=== PATIENT | female | born 1960 | race Two or more races ===

== ENCOUNTER → 2024-04-20 | Emergency (ER) | payer SELFPAY ==
[~2024-04-20] VITALS: Ht 154.9 cm; Wt 68.0 kg
[2024-04-20 19:36] VITALS: BP 156/86; RESP 24; O2SAT 92
[2024-04-20 19:40] VITALS: PULSE 106
--- NOTE | 2024-04-20 19:57 | ED.PDOC ---
Psychiatric HPI Comments 57y F who presents to the ED for chief complaint of anxiety. Pt was crying in the [facility] main lobby as family member recently and pt was grieving and pt suddenly has shortness of breath with associated dizziness and felt she was going to have a syncopal episode. Pt fell to the floor and code assist was called and pt was evaluated. Pt int the ED, now denies any associated chest pain, shortness of breath, headache, dizziness, or any associated symptoms. Pt otherwise denies any other symptoms at this time and declined any workups and wants to go home. Chief Complaint: Anxiety Time Seen by MD: 19:56 Mode of Arrival: Ambulatory Past Medical History PAST MEDICAL HISTORY: Denies Constitutional: reports: malaise, weakness; denies: chills, diaphoresis, fatigue, fever, sweats, others EENTM: denies: blurred vision, double vision, ear bleeding, ear discharge, ear drainage, ear pain, ear ringing, eye pain, eye redness, hearing loss, mouth pain, mouth swelling, nasal discharge, nose bleeding, nose congestion, nose pain, photophobia, tearing, throat pain, throat swelling, voice changes, others Respiratory: denies: cough, hemoptysis, orthopnea, SOB at rest, shortness of breath, SOB with excertion, stridor, wheezing, others Cardiovascular: denies: chest pain, dizzy spells, diaphoresis, Dyspnea on exertion, edema, irregular heart beat, left arm pain, lightheadedness, palpitations, PND, syncope, others Gastrointestinal: denies: abdomen distended, abdominal pain, blood streaked bowels, constipated, diarrhea, dysphagia, difficulty swallowing, hematemesis, melena, nausea, poor appetite, poor fluid intake, rectal bleeding, rectal pain, vomiting, others Genitourinary: denies: abnormal vagina bleeding, burning, dyspareunia, dysuria, flank pain, frequency, hematuria, incontinence, pain, , vagina discharge, urgency, others Neurological: reports: dizziness; denies: fainting, headache, left sided numbness, left sided weakness, numbness, paresthesia, pre-existing deficit, right sided numbness, right sided weakness, seizure, speech problems, tingling, tremors, weakness, others Musculoskeletal: denies: back pain, gout, joint pain, joint swelling, muscle pain, muscle stiffness, neck pain, others Integumetry: denies: bruises, change in color, change in hair/nails, dryness, laceration, lesions, lumps, rash, wounds, others Allergic/Immunocompromised: denies: Difficulty Healing, Frequent Infections, Hives, Itching, others Hematologic/Lymphatic: denies: anemia, blood clots, easy bleeding, easy bruising, swollen glands, others Endocrine: denies: excessive hunger, excessive sweating, excessive thirst, excessive urination, flushing, intolerance to cold, intolerance to heat, unexplained weight gain, unexplained weight loss, others Psychiatric: reports: anxiety; denies: bipolar disorder, depression, hopeless, panic disorder, schizophrenia, sleepless, suicidal, others All Other Systems: Reviewed and Negative Physical Exam General Appearance: No Apparent Distress, Normal HEENT: Normal ENT Inspection, Pharynx Normal, TMs Normal Neck: Full Range of Motion, Non-Tender, Normal, Normal Inspection Respiratory: Chest Non-Tender, Lungs Clear, No Accessory Muscle Use, No Respiratory Distress, Normal Breath Sounds Cardiovascular: No Edema, No JVD, No Murmur, No Gallop, Normal Peripheral Pulses, Regular Rate/Rhythm Breast Exam: Deferred Gastrointestinal: No Organomegaly, Non Tender, No Pulsatile Mass, Normal Bowel Sounds, Soft Genitalia: Deferred Pelvic: Deferred Rectal: Deferred Extremities: No calf tenderness, Normal capillary refill, Normal inspection, Normal range of motion, Non-tender, No pedal edema Musculoskeletal : Apperance: Normal Neurologic: Alert, chemical laboratory technician II-XII nml as Tested, No Motor Deficits, Normal Affect, Normal Mood, No Sensory Deficits Cerebellar Function: Normal Reflexes: Normal Skin: Dry, Normal Color, Warm Lymphatic: No Adenopathy Was a procedure done? Was a procedure done?: No Psych Differential Dx Psych. Differential Dx: Anxiety, Depression, Hopeless, Panic Disorder, Suicidal, Other (grief, takosubo's syndrome) Other Differentail Dx grief response, X-Ray, Labs, Meds, VS Vital Signs Date Time Temp Pulse Resp B/P (MAP) Pulse Ox O2 Delivery O2 Flow Rate FiO2 04/20/24 19:40 106 04/20/24 19:36 98.3 107 24 156/86 (109) 92 Time of 1ST Reevaluation: 20:30 Reevaluation 1ST: Unchanged Patient Education/Counseling: Diagnosis, Treatment, Prognosis, Need For Follow Up Family Education/Counseling: Diagnosis, Treatment, Prognosis, Need For Follow Up Additional Information pt's ekg is unremarkable, other than st. there are no st changes. pt is asymptomatic now and declines any workups. she will be discharged for grief reaction Departure 1 Departure Time of Disposition: 20:00 Impression: Primary Impression: Grief reaction Disposition: HOME / SELF CARE / HOMELESS Condition: Stable Discharged With: Self, Relative (Sibling) Critical Care Note Critical Care Time?: No Stability Stability form required: No Heart Score Heart Score: Heart Score Response (Comments) Value History N/A 0 EKG N/A 0 Age N/A 0 Risk Factors N/A 0 Troponin N/A 0 Total 0 I personally scribed for PHILLIP WHITTAKER MD ([facility]) on 04/20/24 at 19:57. Electronically submitted by Yenny Olivo ([facility]). PHILLIP WHITTAKER MD Apr 20, 2024 19:57
--- NOTE | 2024-04-24 12:35 | ECG ---
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
== END | disposition home or self-care (01) ==
LOC: ER 19:36
DX: F43.20 Adjustment disorder, unspecified (principal)
CPT/HCPCS: 93005